=== PATIENT | female | born 1995 | race Caucasian/White ===

== ENCOUNTER 2021-02-13 17:59 | Emergency (ER) | payer MEDICAID ==
[~2021-02-13] VITALS: Ht 160 cm; Wt 102.7 kg
[2021-02-13 18:12] VITALS: BP 140/91
[2021-02-13] MEDS ORDERED: ketorolac trometh. 30mg/ml inj. IM ONE (19:20)
[2021-02-13] MEDS ORDERED: clindamycin 150mg capsule PO ONE (19:20)
[2021-02-13] MEDS ORDERED: CLIN-117 PO (19:22)
[2021-02-13] MEDS ORDERED: ketorolac tromethamine 15mg/ml inj. IM ONE (19:30)
== END 2021-02-13 19:47 | disposition home or self-care (01) ==
LOC: ER 18:00
DX: K04.7 Periapical abscess without sinus (principal); R68.84 Jaw pain; R11.0 Nausea; Z88.8 Allergy status to other drugs, medicaments and biological substances; Z79.2 Long term (current) use of antibiotics
CPT/HCPCS: 96372; 99283; J1885

== ENCOUNTER 2021-06-07 19:24 | Emergency (ER) | payer MEDICAID ==
[~2021-06-07] VITALS: Ht 160 cm; Wt 100.0 kg
[2021-06-07 20:26] VITALS: BP 124/93
[2021-06-07] MEDS ORDERED: HYDR-3965 PO (23:37)
[2021-06-07] MEDS ORDERED: CEPH250T PO (23:37)
== END 2021-06-08 00:27 | disposition home or self-care (01) ==
LOC: ER 19:24
DX: S91.202A Unspecified open wound of left great toe with damage to nail, initial encounter (principal); M79.675 Pain in left toe(s); Z79.2 Long term (current) use of antibiotics; Z88.8 Allergy status to other drugs, medicaments and biological substances; W50.1XXA Accidental kick by another person, initial encounter; Y93.89 Activity, other specified; Y92.89 Other specified places as the place of occurrence of the external cause; Y99.8 Other external cause status
CPT/HCPCS: 73660; 99283

== ENCOUNTER 2021-11-11 19:30 | Emergency (ER) | payer MEDICAID ==
[~2021-11-11] VITALS: Ht 160 cm; Wt 100.0 kg
[2021-11-11 20:03] LABS: BASOPHILS % (AUTO) 0.4 % (0-1); EOSINOPHILS # (AUTO) 0.1 X10'3 (0-0.9); EOSINOPHILS % (AUTO) 1.2 % (0-6); HEMOGLOBIN 12.3 g/dl (12.0-16.0); LYMPHOCYTES # (AUTO) 2.8 X10'3 (1.1-4.8); LYMPHOCYTES % (AUTO) 28.7 % (21-51); MEAN CORPUSCULAR HEMOGLOBIN 27.2 PG (27.0-31.0); MEAN CORPUSCULAR HGB CONC 34.1 g/dL (33.0-36.5); MEAN CORPUSCULAR VOLUME 79.7 FL (78-98); MEAN PLATELET VOLUME 8.7 FL (7.4-10.4); MONOCYTES # (AUTO) 0.8 X10'3 (0-0.9); MONOCYTES % (AUTO) 8.1 % (2-12); NEUTROPHILS # (AUTO) 6.1 X10'3 (1.8-7.7); NEUTROPHILS % (AUTO) 61.6 % (42-75); PLATELET COUNT 390 X10'3 (140-440); RED BLOOD COUNT 4.51 X10'6 (4.20-5.60); RED CELL DISTRIBUTION WIDTH 15.6 % (11.5-14.5); WHITE BLOOD COUNT 9.9 X10'3 (4.5-11.0)
[2021-11-11 20:30] LABS: ALANINE AMINOTRANSFERASE 42 U/L (12-78); ALBUMIN 4.1 G/DL (3.4-5.0); ALKALINE PHOSPHATASE 81 IU/L (46-116); ANION GAP 7 (8-16); ASPARTATE AMINO TRANSFERASE 16 U/L (10-37); BILIRUBIN,TOTAL 0.2 MG/DL (0.1-1.0); BLOOD UREA NITROGEN 12 MG/DL (7-18); BUN/CREATININE RATIO 14.1 (6.6-38.0); CALCIUM 9.4 MG/DL (8.5-10.1); CHLORIDE 103 MMOL/L (99-107); CREATININE 0.85 MG/DL (0.40-0.90); GLUCOSE 83 MG/DL (70-104); POTASSIUM 3.7 MMOL/L (3.5-5.1); SODIUM 136 MMOL/L (135-145); TOTAL CARBON DIOXIDE 25.6 MMOL/L (24-32); TOTAL PROTEIN 8.1 G/DL (6.4-8.2); eGFR 81 ML/MIN
--- NOTE | 2021-11-11 21:20 | NUR ---
pT PRESENTS TO ed WITH REPORTS OF sob, STATES THAT SHE HAS BEEN SEEN WITH THIS BEFORE, BUT MDS DX HER WITH ANXIETY AND SPORTS RELATED ASTHMA. nO OTHER MED HX. STATES THAT SHE FEELS SHE IS STRUGGLING AT REST. o2 SAT CURRENTLY 99% ON RA. NO PURSED LIP BREATHING OR CYANOSIS NOTED. PT IN NO ACUTE DISTRESS.
[2021-11-11 22:12] VITALS: BP 127/79
== END 2021-11-11 22:15 | disposition home or self-care (01) ==
LOC: ER 19:31
DX: R06.02 Shortness of breath (principal); J45.909 Unspecified asthma, uncomplicated; Z88.8 Allergy status to other drugs, medicaments and biological substances
CPT/HCPCS: 36415; 71045; 80053; 83880; 84484; 85025; 93005; 99285